=== PATIENT | female | born 1940 | race Two or more races ===

== ENCOUNTER → 2016-04-14 | Day surgery (SDC) | payer OTHER ==
--- NOTE | 2016-04-12 10:41 | Opthalmology H&P ---
Ophthalmology H&P H&P Chief Complaint: decreased vision in right eye HPI Vision Affects Ability to: read, focus/use eyes together, manage personal affairs HPI Narrative blurry vision Exam Visual Acuity: OD: 20/80 OS; 20/80 Tension: OD: 13 OS; 14 Eye Exam: normal OU: anterior chambers, corneas, external exam, levator function, marginal reflex distance, palpebral fissure-width, findings: fundus exam - CD: 0.8 OU, lens - OD: ns OS: ns Assessment/Plan Diagnosis: (1) Cataract Treatment Plan: cataract extraction w/ lens implant Goals of Treatment: improvement of vision, enhance quality of life Attestation Attestation The risks and benefits of the surgery as well as alternative procedures were explained to the patient in detail. JOSEMANUEL LUONG Apr 12, 2016 10:41
--- NOTE | 2016-04-12 15:26 | Pre-Procedure Note/Attestation ---
Pre-Procedure Note/Attestation Complete Prior to Procedure Planned Procedure: right Procedure Narrative: phaco with IOL Indications for Procedure Pre-Operative Diagnosis: Cataract Attestation I attest that I discussed the nature of the procedure; its benefits; risks and complications; and alternatives (and the risks and benefits of such alternatives ), prior to the procedure, with the patient (or the patient's legal footwear sales representative). I attest that, if there was a reasonable possibility of needing a blood transfusion, the patient (or the patient's legal footwear sales representative) was given the [facility] standardized written summary, pursuant to the [place] Blood Safety Act ([place] Health and Safety Code # 1645, as amended). I attest that I re-evaluated the patient just prior to the surgery and that there has been no change in the patient's H&P, except as documented below: JOSEMANUEL LUONG Apr 12, 2016 15:26
[~2016-04-14] VITALS: Ht 152.4 cm; Wt 49.9 kg
[2016-04-14] VITALS (9 sets, daily range): BP systolic 121–160; BP diastolic 56–73
[~2016-04-14] MED LIST: Akten 3.5% 1ml Btl RIGHT EYE ONE; BSS 15ml BTL ONE; BSS 500ml btl ONE; Dexamethasone 4mg/ml vial ONE; EPINEPHrine 1mg/1ml Amp ONE; HUMALOG KW200 UNIT/1 SQ; Hydromorphone 0.5mg/0.5ml inj IVP PRN; METFORMIN HCL500 M1 ORAL; Maxitrol Opth Oint 3.5gm ONE; Povidone-Iodine 5% opth solution ONE; Pred Forte 1% Opth Susp 1ml ONE; Sodium Hyaluronate 14 mg/ml 0.85ml ONE; TRAMADOL HCL50 MG ORAL
[2016-04-14] MEDS: Phenylephrine 2.5% Op Soln RIGHT EYE SCH ×3 (07:54→08:17)
[2016-04-14] MEDS: Cyclopentolate 1% Opth Sol RIGHT EYE SCH ×3 (07:55→08:18)
[2016-04-14] MEDS: Tropicamide 1% Opth Soln RIGHT EYE SCH ×3 (07:56→08:18)
[2016-04-14] MEDS: Diclofenac Sod 0.1% Op Soln RIGHT EYE SCH ×3 (07:57→08:18)
--- NOTE | 2016-04-14 09:47 | Anethesia Preoperative Eval ---
Anesthesia Pre-op PMH/ROS General Date of Evaluation: Apr 14, 2016 Time of Evaluation: 09:15 Anesthesiologist: HEIKE ASA Score: ASA 3 Mallampati Score Class I : Soft palate, uvula, fauces, pillars visible Class II: Soft palate, uvula, fauces visible Class III: Soft palate, base of uvula visible Class IV: Only hard plate visible Mallampati Classification: Class II Surgeon: AG Diagnosis: CATARACT Surgical Procedure: REMOVAL CATARACT LENS IMPLANT R Anesthesia History: PONV Family History: no anesthesia problems Allergies: Coded Allergies: No Known Allergies (Verified Allergy, Unknown, 08/06/08) Medications: see eMAR Past Medical History Cardiovascular: Reports: HTN Pulmonary: Denies: COPD, JOSE ANTONIO, asthma, other Gastrointestinal/Genitourinary: Reports: CRI, ESRD - CKD, Denies: GERD, other Neurologic/Psychiatric: Denies: CVA, TIA, dementia, depression/anxiety, other Endocrine: Reports: DM HEENT: Reports: cataract (R) Hematology/Immune: Denies: DVT, anemia, bleeding disorder, other Musculoskeletal/Integumentary: Reports: DJD Anesthesia Pre-op Phys. Exam Physician Exam Last Vital Signs Date Time Temp Pulse Resp B/P Pulse Ox O2 Delivery O2 Flow Rate FiO2 04/14/16 08:03 97.8 74 18 160/73 Room Air Constitutional: NAD Neurologic: CN 2-12 intact Cardiovascular: RRR Respiratory: CTA Gastrointestinal: S/NT/ND Airway Exam Mallampati Score: Class II MO: full ROM: full Teeth: missing Dentures: no lower, no upper Anesthesia Pre-op A/P Risk Assessment & Plan Assessment: ASA3 Plan: MAC Status Change Before Surgery: No Pre-Antibiotics Given Within 1 Hr of Incision: RADHIKA Escalera M.D. Apr 14, 2016 09:47
--- NOTE | 2016-04-14 09:51 | Immediate Post-Op Evaluation ---
Immediate Post-Op Evalulation Immediate Post-Op Evalulation Procedure: CATARACT REMOVAL LENS IMPLANT Date of Evaluation: Apr 14, 2016 Time of Evaluation: 10:55 IV Fluids: 354 Blood Products: 0 Estimated Blood Loss: 0 Urinary Output: 0 Blood Pressure Systolic: 123 Blood Pressure Diastolic: 72 Pulse Rate: 56 Respiratory Rate: 16 O2 Sat by Pulse Oximetry: 98 Temperature (Fahrenheit): 99 Pain Score (1-10): 1 Nausea: No Vomiting: No Complications 0 Patient Status: awake, patent, none Hydration Status: adequate Given Within 1 Hr of Incision: RADHIKA Escalera M.D. Apr 14, 2016 09:51
--- NOTE | 2016-04-14 09:51 | 48 Hour Post Anesthesia Eval ---
Post Anesthesia Evaluation Procedure: CATARACT REMOVAL LENS IMPLANT Date of Evaluation: Apr 14, 2016 Time of Evaluation: 13:57 Blood Pressure Systolic: 144 0: 80 Pulse Rate: 72 Respiratory Rate: 12 Temperature (Fahrenheit): 98 O2 Sat by Pulse Oximetry: 99 Airway: patent Nausea: No Vomiting: No Hydration Status: adequate Cardiopulmonary Status: wnl Mental Status/LOC: patient returned to baseline Follow-up care needed: ready to discharge RADHIKA BURROUGHS M.D. Apr 14, 2016 09:51
--- NOTE | 2016-04-15 08:52 | Brief Operative Note ---
Immediate Post Operative Note Operative Note Chief Complaint: blurry vision Pre-op Diagnosis: Cataract Procedure: phaco with IOL Post-op Diagnosis: Pseudophakia Post-op Diagnosis: same as pre-op Findings: consistent w/pre-op dx studies Surgeon: Cleo Anesthesiologist: Juan F Anesthesia: MAC Specimen: none Complications: none Estimated Blood Loss: none Drains: none Implant(s) used?: Yes JOSEMANUEL LUONG Apr 15, 2016 08:52
--- NOTE | 2016-04-17 11:21 | Operative Note - PDOC ---
Operative Note Operative Note Date of Operation/Procedure: Apr 14, 2016 Chief Complaint: blurry vision Pre-op Diagnosis: Cataract Procedure: phaco with IOL Post-op Diagnosis: Pseudophakia Post-op Diagnosis: same as pre-op Operative Findings: consistent w/pre-op dx studies Surgeon: Cleo Anesthesiologist: Juan F Anesthesia: MAC Specimen: none Complications: none Estimated Blood Loss: none Drains: none Implant(s) used?: Yes Indications for Procedure cataract Description of Procedure This patient has been complaining visually significant cataract in the affected eye with the best corrected visual acuity under moderate glare conditions worse. The patient complains of difficulties with glare in performing activities of daily living and wants to manage personal affairs with comfort and accuracy and see well enough to move with safety at home and outdoors. ~~~ The risks, benefits and alternatives of the procedure were discussed with the patient in the office prior to scheduling surgery. All questions from the patient were answered after the surgical procedure was explained in detail. The risks of the procedure as explained to the patient include, but are not limited to, pain, infection, bleeding, loss of vision, retinal detachment, need for further surgery, loss of lens nucleus, double vision, etc. Alternative procedures were discussed which include, to do nothing or seek a second opinion. Informed consent for this procedure was obtained from the patient. The patient was referred to a primary care physician for a cardiopulmonary clearance prior to surgery, after proper evaluation was done patient was properly scheduled for outpatient surgery. The patient was brought to the operating room where the anesthesiologist established I.V. lines and cardiac monitoring leads. Mild intravenous sedation was administered.~~ The patient was then prepared with a 5% solution of povidone -iodine to the conjunctival fornix and lashes, and a 10% solution of povidone- iodine to the lids and periorbital skin. The patient was then draped in the usual sterile fashion. A lid speculum was then placed in the operative eye. A keratome blade was then used to create a biplanar incision into the anterior chamber. Viscoelastics was then instilled into the anterior chamber. A capsulorrhexis was then fashioned with an utrata forceps BSS and a cannula were then used to hydrodissect and hydro delineate the lens. Paracentesis incision was made at 3 o'clock with sharp blade. The phacoemulsification unit, after being properly adjusted~ and tested, was then used to emulsify the nucleus followed by aspiration and irrigation of residual cortical material.Healon was then instilled into the anterior chamber. The corneal wound was then enlarged to the size of the optic with the randi keratome blade. The intraocular lens was then inspected for right~ power and size~ and thought to be satisfactory. Then the lens was gently placed in the capsular bag. Positioning within the capsular bag was confirmed by direct visualization. Optic centration was accomplished with a Sinskey hook. Viscoelastics~ was removed from the anterior chamber using the irrigation and aspiration unit. The corneal wound was then tested for leaks and none were found. The lid speculum were then removed. Sponge and needle counts were correct. An eye patch and shield were placed over the operative eye. The patient was taken to the recovery room in stable condition. There were no complications. The patient tolerated the procedure well. The patient was then transferred to the ambulatory surgery unit in stable and satisfactory condition , was given detailed written instructions and asked to follow up~ in the office the next day. ~ ~ Dictated & Transcribed: Bruno Leisa JOHNSON JAMES Apr 17, 2016 11:21
[2016-04-21 14:08] VITALS: BP 144/80
== END | disposition home or self-care (01) ==
LOC: SUR 06:38
DX: H26.9 Unspecified cataract (principal); E11.42 Type 2 diabetes mellitus with diabetic polyneuropathy; E11.22 Type 2 diabetes mellitus with diabetic chronic kidney disease; I12.9 Hypertensive chronic kidney disease with stage 1 through stage 4 chronic kidney disease, or unspecified chronic kidney disease; N18.1 Chronic kidney disease, stage 1; Z79.4 Long term (current) use of insulin; Z79.84 Long term (current) use of oral hypoglycemic drugs; E78.2 Mixed hyperlipidemia; M19.90 Unspecified osteoarthritis, unspecified site; M81.0 Age-related osteoporosis without current pathological fracture
CPT/HCPCS: 66984; 82962; J0171; J1100; J3370; V2632; 94003; 94150